=== PATIENT | male | born 1940 | race Caucasian/White ===

== ENCOUNTER 2020-05-25 10:50 | Outpatient (CLI) | payer MEDICARE ==
[~2020-05-25 10:50] MED LIST: Iopamidol-370 76% 500 ML 1 ML ONE
[2020-05-25 11:27] LABS: Estimated GFR-MDRD - POC Greater than 90
--- NOTE | 2020-05-25 13:42 | CT ---
CT Abdomen W WO Con: 05/25/2020 12:00 AM CLINICAL HISTORY: Right renal mass. TECHNIQUE: Multiple contiguous axial images were obtained and a CT of the abdomen without and with IV contrast. Postcontrast images were obtained in the nephrographic and excretory phases. Sagittal and coronal reformats were performed. COMPARISON: None. FINDINGS: Kidneys and Urinary Tract: Right kidney and visualized ureter: No calculi. No hydronephrosis or hydroureter. No renal mass or ot her lesions. There is atrophy of the lower pole the right kidney likely secondary to a renal artery event in the past. No urothelial lesions: no filling defect, dilation, stricture or wall thickening. Left kidney and visualized ureter: No calculi. No hydronephrosis or hydroureter. No renal mass or oth er lesions. No urothelial lesions: no filling defect, dilation, stricture or wall thickening. Remainder of Abdomen: Liver: Normal. Gallbladder and biliary system: Normal. No CT evident gallstones. No biliary ductal dilatation. Spleen: Normal. Pancreas: Normal. Adrenal glands: Normal. GI tract: Scattered diverticula in the colon. Normal appendix. Abdominal aorta and its major branches: There is a stent graft within an abdominal aortic aneurysm. T he aneurysm has decreased in size compared to the prior examination and measures 4.5 cm in greatest dimension. Peritoneum/retroperitoneum: Normal. No ascites. No adenopathy. Pelvic structures: Normal. No pelvic lymphadenopathy. Body wall and musculoskeletal: Degenerative changes are seen in the spine. Visualized lower thorax: Atherosclerotic calcifications in the coronary arteries. No pulmonary parenc hymal mass or pleural effusion. IMPRESSION: 1. No significant mass seen in either kidney. 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 2. Decreased size of abdominal aortic aneurysm status post stent graft repair
== END 2020-05-25 10:51 | disposition home or self-care (01) ==
LOC: BICCT 10:50
PROVIDERS: ATTEND Urology
DX: D41.01 Neoplasm of uncertain behavior of right kidney (principal); N26.1 Atrophy of kidney (terminal); I71.4 Abdominal aortic aneurysm, without rupture; Z98.890 Other specified postprocedural states
CPT/HCPCS: 74170; 82565; Q9967